=== PATIENT | female | born 1975 | race Caucasian/White ===

== ENCOUNTER 2018-05-03 21:15 | Emergency (ER) | payer BC ==
[2018-05-03 22:31] LABS: Urine Appearance Clear; Urine Blood Negative (Negative); Urine Color Yellow; Urine Ketones Negative (Negative); Urine Protein Negative (Negative); Urine Specific Gravity 1.013 (1.010-1.030); Urine Urobilinogen Negative (Negative)
[2018-05-03 22:33] LABS: ABS Basophils 0 10^3/ul (0-0.2); ABS Eosinophils 0.1 10^3/ul (0-0.6); ABS Lymphocytes 2.1 10^3/ul (1.0-4.8); ABS Monocytes 0.5 10^3/ul (0-0.8); ABS Neutrophils 4.5 10^3/ul (1.5-7.7); ABS Nucleated RBC 0 10^3/ul; Eosinophil % 1.1 % (0-6); Hematocrit 30 % (35-47); Hemoglobin 10.2 g/dl (12.0-16.0); Lymphocyte % 28.8 % (25-47); Mean Corpuscular HGB Conc 34 g/dl (31-36); Mean Corpuscular Hemoglobin 31 pg (27-31); Mean Corpuscular Volume 90 fL (80-97); Nucleated Red Blood Cells % 0; Platelet Count 173 10^3/ul (150-450); Red Blood Count 3.32 10^6/ul (4.00-5.40); Red Cell Distribution Width 15 % (10.5-15); White Blood Count 7.1 10^3/ul (3.5-10.8)
[2018-05-03 22:41] LABS: INR 0.9 (0.77-1.02)
[2018-05-03 22:56] LABS: EGFR Non-African American 85.7 (>60)
[2018-05-03] MEDS ORDERED: Fluconazole 100 MG TAB* TAB PO ONE (23:00)
[2018-05-03] MEDS ORDERED: Fluconazole 150 MG (NF) 150 MG TAB PO ONE (23:32)
--- NOTE | 2018-05-03 23:50 | ED ---
Pollo Mckeon Rebecca, scribed for Vijay Snyder on 05/03/18 at 2144 . GI/ HPI - HPI Summary HPI Summary: Pt is a 42 y/o F who presents to ED due to urinary retention and pain around her catheter. Describes the sensation and feeling like she needs to urinate, but is unable to, as well as irritated. 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 On triage, temperature is 99.9. Pt reports that she had surgery done on Saturday (3 days ago) after which she was experiencing urinary retention and so a straight catheter was placed. Upon discharge, she continued to be unable to urinate so she came to [facility] and had another straight cath. She then developed a blood hematoma and went back into surgery on (2 days ago) after which they placed a fleming catheter until her post -op appointment on Saturday (3 days from today). Is not on Abx. - History of Current Complaint Chief Complaint: EDUrogenitalProblems Time Seen by Provider: 05/03/18 21:39 Stated Complaint: POSSIBLE BLADDER INFECTION Hx Obtained From: Patient Onset/Duration: Started Days Ago - 3 days, Still Present Current Severity: Moderate Pain Intensity: 6 Location of Pain: Other - Around catheter Pain Characteristics: Other: - Irritated Associated Signs and Symptoms: Positive: Fever, Other: - Urinary retention Aggravating Factor(s): Nothing Alleviating Factor(s): Nothing - Allergy/Home Medications Allergies/Adverse Reactions: Allergies Allergy/AdvReac Type Severity Reaction Status Date / Time No Known Allergies Allergy Verified 01/15/15 14:58 PMH/Surg Hx/FS Hx/Imm Hx Endocrine/Hematology History: Reports: Hx Thyroid Disease Psychiatric History: Reports: Hx Anxiety - Cancer History Hx Chemotherapy: No Hx Radiation Therapy: No Infectious Disease History: No Infectious Disease History: Denies: Traveled Outside the [place] in Last 30 Days - Family History Known Family History: Positive: Hypertension, Diabetes - Social History Alcohol Use: Weekly Substance Use Type: Reports: None Smoking Status (MU): Never Smoked Tobacco Review of Systems Positive: Fever Positive: other - Urinary retention and pain around catheter All Other Systems Reviewed And Are Negative: Yes Physical Exam - Summary Physical Exam Summary: Appearance: Well appearing, no pain distress Skin: warm, dry, reflects adequate perfusion Head/face: normal Eyes: EOMI, SERENITY ENT: normal Neck: supple, non-tender Respiratory: CTA, breath sounds present Cardiovascular: RRR, pulses symmetrical Abdomen: non-tender, soft, fleming catheter in palce Bowel: present Musculoskeletal: dressing over the chest, strength/ROM intact Neuro: normal, sensory motor intact, A&Ox3 TERESA Hernandez, will do the pelvic examination Triage Information Reviewed: Yes Vital Signs On Initial Exam: Initial Vitals Temp Pulse Resp BP Pulse Ox 99.9 F 73 18 115/67 100 05/03/18 21:16 05/03/18 21:16 05/03/18 21:16 05/03/18 21:16 05/03/18 21:16 Vital Signs Reviewed: Yes Diagnostics - Vital Signs Vital Signs Temp Pulse Resp BP Pulse Ox 05/03/18 21:16 99.9 F 73 18 115/67 100 - Laboratory Result Diagrams: 05/03/18 22:22 05/03/18 22:22 Lab Statement: Any lab studies that have been ordered have been reviewed, and results considered in the medical decision making process. - Radiology CXR Xray Interpretation: No Acute Changes Radiology Interpretation Completed By: ED Physician Re-Evaluation - Re-Evaluation First Eval Re-Evaluation Time: 23:33 Comment: Discussed results and consult with her surgeon. GIGU Course/Dx - Course Assessment/Plan: Pt is a 42 y/o F who presents to ED due to urinary retention and pain around her catheter. Additionally notes a fever of 101 [employer] GRAD[employer] for which she took Tylenol and on triage, temperature is 99.9. Pt reports that she had surgery done on Saturday (3 days ago) after which she was experiencing urinary retention and so a straight catheter was placed. Upon discharge, she continued to be unable to urinate so she came to [facility] and had another straight cath. She then developed a blood hematoma and went back into surgery on (2 days ago) after which they placed a fleming catheter until her post-op appointment on Saturday (3 days from today). Is not on Abx. CXR reveals no acute findings. In the ED course, blood work was done with results including WBC of 7.1, CRP of 12.94. UA was negative for UTI. Discussed results with her surgeon. She will get 1 Diflucan tab now and 1 to go home. She will be D/C to home to follow up with her PCP with Dx of vulvovaginitis, fleming catheter complications and s/p bilateral breast reduction. She understands and agrees. CXR reveals no acute findings. - Diagnoses Provider Diagnoses: Vulvovaginitis, Complication of Fleming catheter, S/P bilateral breast reduction Discharge - Sign-Out/Discharge Documenting (check all that apply): Discharge/Admit/Transfer - Discharge - Discharge Plan Condition: Stable Disposition: HOME Prescriptions: Fluconazole [Diflucan 150 MG (NF)] 150 mg PO ONCE #1 tab Patient Education Materials: Fleming Catheter Placement and Care (ED), Vaginitis (ED) Referrals: Ambrocio Lyons MD [Primary Care Provider] - 3 Days Additional Instructions: RETURN TO ED FOR ANY NEW OR WORSENING SYMPTOMS. RETURN IF YOU BEGIN EXPERIENCING FEVER OR SHORTNESS OF BREATH. The documentation as recorded by the Pollo razo Rebecca accurately reflects the service I personally performed and the decisions made by , Vijay Snyder.
[2018-05-04 00:03] VITALS: BP 103/68
--- NOTE | 2018-05-04 08:45 | RAD ---
Indication: Fever. 2 views of the chest including dual energy PA views demonstrates no mediastinal shift. Heart is normal size and configuration. Lung ibanez are clear. Bony structures are grossly unremarkable. IMPRESSION: No active cardiopulmonary disease is noted.
== END 2018-05-03 23:59 | disposition home or self-care (01) ==
LOC: ED 21:15
DX: N76.0 Acute vaginitis (principal); T83.098A Other mechanical complication of other urinary catheter, initial encounter; Z98.890 Other specified postprocedural states; E07.9 Disorder of thyroid, unspecified; F41.9 Anxiety disorder, unspecified; Y84.6 Urinary catheterization as the cause of abnormal reaction of the patient, or of later complication, without mention of misadventure at the time of the procedure; Y73.8 Miscellaneous gastroenterology and urology devices associated with adverse incidents, not elsewhere classified; R50.9 Fever, unspecified
CPT/HCPCS: 36415; 71046; 80053; 81003; 83605; 83690; 85025; 85610; 85730; 86140; 87040; 87480; 87510; 99283; A9270-GY

== ENCOUNTER 2019-11-12 07:45 | Day surgery (SDC) | payer BC ==
[~2019-11-12 07:45] MED LIST: Buffered Lidocaine 1% SYRIN* 1 ML/SYRINGE INTRADERM ONE; Dexamethasone IV* 4 MG/ML 1 ML (4 MG) IV SLOW PU ONE; Dexamethasone IV* 4 MG/ML 1 ML (4 MG) ONE; Famotidine IV* 10 MG/ML 2 ML (20 mg) IV ONE; Famotidine IV* 10 MG/ML 2 ML (20 mg) ONE; Lactated Ringers 1000 ML Bag* 1,000 ML IV SCH; ceFAZolin 2 GM PREMIX in ORs 2 GM/50 ML BAG ONE
[2019-11-12] MEDS ORDERED: Buffered Lidocaine 1% SYRIN* 1 ML/SYRINGE INTRADERM ONE (08:17)
[2019-11-12] MEDS ORDERED: Lidocaine 1% INJ* 10 MG/ML 30 ML SDV ONE (08:40)
[2019-11-12] MEDS ORDERED: Bupivacaine 0.5% SDV PF* 30ML VIAL ONE (08:40)
[2019-11-12] MEDS ORDERED: Dexamethasone IV* 4 MG/ML 1 ML (4 MG) ONE (08:40)
[2019-11-12] MEDS ORDERED: Midazolam* 1 MG/ML 5 ML VIAL (5 MG) ONE (08:53)
[2019-11-12] MEDS ORDERED: Propofol* 10 MG/ML 20 ML BTL ONE (08:54)
[2019-11-12] MEDS ORDERED: Ketorolac INJ* 30 MG/ML 1 ML VIAL ONE (08:54)
[2019-11-12] MEDS ORDERED: Ondansetron INJ* 2 MG/ML VIAL ONE (08:54)
[2019-11-12] MEDS ORDERED: oxyCODONE/Acetamin 5/325 MG* TAB PO PRN (09:27)
[2019-11-12] MEDS ORDERED: Ondansetron INJ* 2 MG/ML VIAL IV PRN (09:27)
[2019-11-12] MEDS ORDERED: Naloxone* 0.4 MG/ML 1 ML VIAL IV PRN (09:27)
[2019-11-12] MEDS ORDERED: DiMENhydriNATE IV* 50 MG/ML VIAL IV PUSH PRN (09:27)
[2019-11-12 10:02] VITALS: BP 103/68
--- NOTE | 2019-11-12 13:14 | OP ---
DATE OF OPERATION: 11/12/19 [facility] DATE OF : 73 SURGEON: Rodolfo Fleming DPM. COLLEGE COUNSELOR: None. PRE-OP DIAGNOSIS: Large painful ganglion cyst on the dorsolateral aspect of the left foot. POST-OP DIAGNOSIS: Large painful ganglion cyst on the dorsolateral aspect of the left foot. OPERATIVE PROCEDURE: Excision of ganglion cyst from left foot. PATHOLOGY: Excised soft tissue mass. ANESTHESIA: MAC with local. HEMOSTASIS: Pneumatic ankle tourniquet. ESTIMATED BLOOD LOSS: Less than 20 cc. INDICATIONS: The patient with a growing and chronic painful soft tissue mass with previous aspirations showing it to be ganglion cyst that has become painful to walk and wear shoes and she opts for surgery this time to remove this mass. DESCRIPTION OF PROCEDURE: The patient was brought to the operating room, placed on the operating room table in the supine position. The anesthesia department administered IV sedation and peripheral nerve block was performed in a ring type block around the visible raised soft tissue mass in the dorsolateral aspect of the left foot. This was done with a 1:1 mixture of 1% lidocaine plain and 0.5% Marcaine plain. The left foot was then prepped and draped in the usual fashion. Next, an Esmarch bandage was utilized to examine the left foot and the pneumatic ankle tourniquet was inflated to 250 mmHg about a well-padded left ankle. Attention was directed to the dorsolateral aspect of the left foot where a large, raised, visible subcutaneous mass was noted. A curvilinear incision was made and dissection was carried into the subcutaneous tissues with care being taken to protect the cyst. It appeared to be well encapsulated, and using sharp and blunt dissection was freed from surrounding soft tissue attachments. It was found to originate deeper below the extensor hallucis brevis muscle and portion of the peroneus tertius, tendon sheath, and the deeper fascia. It was removed without breakage and remained fully intact. In the more proximal areas, some further deep fascia and tissue was resected with no obvious or visible breach into any deeper joint in the area. Portion of the adjacent tendon sheath was resected and the area was flushed with copious amounts of normal sterile saline. It should be noted that during the dissection, a portion of the intermediate dorsal cutaneous nerve was in close proximity to this mass. This was identified and protected throughout the procedure as well as more laterally and plantarly, the lateral dorsal cutaneous nerve was identified and protected throughout the procedure as well. Subcutaneous tissues were reapproximated, secured with 4-0 Vicryl and then the skin was closed with 5-0 nylon. 12 mg of dexamethasone phosphate was infiltrated about the surgical site and the incision was dressed with Xeroform gauze and a mildly compressive dressing was applied with 4x4 gauze, Kiah, and a light Coban wrap. The pneumatic ankle tourniquet was deflated about the left ankle and a prompt hyperemic response was noted to all 5 digits of the patient' s left foot. Having appeared to have tolerated the procedures and anesthesia well, the patient was transported via cart from the operating room to Recovery in satisfactory condition with cap refill less than 3 seconds to all digits of the left foot. [id number] #: [id number] MTDD
== END 2019-11-12 10:38 | disposition home or self-care (01) ==
LOC: OREAST 07:45
PROVIDERS: ATTEND Podiatrist Foot Surgery
DX: M67.472 Ganglion, left ankle and foot (principal); E03.9 Hypothyroidism, unspecified; F41.9 Anxiety disorder, unspecified; J30.2 Other seasonal allergic rhinitis
CPT/HCPCS: 81025; 88304; J0690; J1100; J1885; J2250; J2405; J2704; J3490